=== PATIENT | female | born 1950 | race Caucasian/White ===

== ENCOUNTER 2016-12-12 04:37 | Emergency (ER) | payer OTHER ==
[~2016-12-12] VITALS: Ht 165.1 cm; Wt 75.0 kg
[~2016-12-12 04:37] MED LIST: CIPR500T4 PO; LORTA5 PO; METR-1 PO; NEUR300C PO; SIMV40 PO; VIMOVO PO
[2016-12-12 04:40] VITALS: BP 187/96; PULSE 98; RESP 16; TEMP 97.9; O2SAT 99
[2016-12-12] MEDS ORDERED: SODIUM CHLOR 0.9% 1000 ML INJ 1,000 ML IV SCH (05:11)
[2016-12-12] MEDS ORDERED: LIDOCAINE VISCOUS 2% SOLN 15 ML UDC PO ONE (05:15)
[2016-12-12] MEDS ORDERED: ALUMINUM/MAGNESIUM/SIMETH 30 ML CUP PO ONE (05:15)
[2016-12-12] MEDS ORDERED: diphenhydrAMINE HCL 50 MG/ML VIAL IVP ONE (05:15)
[2016-12-12] MEDS ORDERED: SODIUM CHLORIDE 0.9% FLUSH 5 ML FLUSH IVF PRN (05:15)
[2016-12-12] MEDS ORDERED: methylPREDNISolone SOD SUCC 125 MG/2 ML VIAL IM ONE (05:15)
[2016-12-12] MEDS ORDERED: FAMOTIDINE 20 MG/2 ML VIAL IV PUSH ONE (05:15)
--- NOTE | 2016-12-12 06:10 | PD ---
HPI Chief Complaint: Facial Pain or Swelling Time Seen by Provider: 05:10 Travel History International Travel<30 days: No Contact w/Intl Traveler<30days: No Traveled to known affect area: No History of Present Illness HPI 66-year-old female arrives with minimal swelling about the tongue and pain and swelling about the right face. It started while she was asleep waking her up. She also describes sore throat with swallowing. She's had no chest pain or dyspnea. She denies dentalgia. Onset gradual. Benadryl taken prior to ER arrival seems to have improved the tongue swelling somewhat. No fever. No similar prior episodes. She takes a statin daily. She denies any new or different medication or exposure to potential allergens of which she can identify. Onset gradual. Timing constant. PFSH Past Medical History Arthritis: Yes Cancer: Yes (BREAST CA) High Cholesterol: Yes Diverticulitis: Yes Tetanus Vaccination: > 5 Years Influenza Vaccination: No Menopausal: Yes Past Surgical History Cholecystectomy: Yes (IN 2008) Tonsillectomy: Yes ( A CHILD) Social History Alcohol Use: Yes (OCC.) Tobacco Use: No Substance Use: No Allergies-Medications (Allergen,Severity, Reaction): Coded Allergies: Sulfa (Verified Allergy, Severe, HIVES, 12/12/16) Reported Meds & Prescriptions Reported Meds & Active Scripts Active Clindamycin (Clindamycin HCl) 150 Mg Cap 450 Mg PO Q8HR 10 Days Benadryl Allergy (Diphenhydramine HCl) 25 Mg Tab 25 Mg PO Q6H PRN Prednisone 20 Mg Tab 20 Mg PO BID 4 Days [place] 5-325 mg (Hydrocodone-Acetaminophen 5-325 mg) 325 Mg/5 Mg Tab 1 Tab PO Q4HPRN Reported Flagyl (Metronidazole) 500 Mg Tab 500 Mg PO TID Cipro (Ciprofloxacin HCl) 500 Mg Tab 500 Mg PO BID Neurontin (Gabapentin) 300 Mg Cap 300 Mg PO TID [Vimovo] 1 Tab PO BID Zocor 40 Mg Tab40 Mg 40 Mg Tab 40 Mg PO HS Review of Systems Except as stated in HPI: all other systems reviewed are Neg Physical Exam Narrative GENERAL: 66-year-old female well-nourished well-developed SKIN: Warm and dry. No rash. HEAD: Atraumatic. Normocephalic. EYES: Pupils equal and round. No scleral icterus. No injection or drainage. ENT: No nasal bleeding or discharge. Mucous membranes pink and moist. Perhaps trace edema about the periphery of the tongue. Posterior oropharynx is widely patent. Buccal mucosa appears pink and intact with clear visualization of Stensen's duct on both sides. Excellent dentition with no evidence of carry/ apical abscess/tenderness. Along the body of the mandible on the right side there is a 1-2 cm focus of non-mobile tenderness swelling without overlying skin change or change involving the gingival mucosa. NECK: Trachea midline. No JVD. CARDIOVASCULAR: Regular rate and rhythm. No murmur appreciated. RESPIRATORY: No accessory muscle use. Clear to auscultation. Breath sounds equal bilaterally. GASTROINTESTINAL: Abdomen soft, non-tender, nondistended. Hepatic and splenic margins not palpable. MUSCULOSKELETAL: No obvious deformities. No clubbing. No cyanosis. No edema. NEUROLOGICAL: Awake and alert. No obvious cranial nerve deficits. Motor grossly within normal limits. Normal speech. PSYCHIATRIC: Appropriate mood and affect; insight and judgment normal. Data Data Last Documented VS Vital Signs Date Time Temp Pulse Resp B/P Pulse Ox O2 Delivery O2 Flow Rate FiO2 12/12/16 06:52 87 18 12/12/16 06:51 156/85 12/12/16 04:40 97.9 99 Orders Basic Metabolic Panel (Bmp) (12/12/16 05:11) Complete Blood Count With Diff (12/12/16 05:11) Ecg Monitoring (12/12/16 05:11) Iv Access Insert/Monitor (12/12/16 05:11) Oximetry (12/12/16 05:11) Diphenhydramine Inj (Benadryl Inj) (12/12/16 05:15) Methylprednisolone So Succ Inj (Solumedr (12/12/16 05:15) Famotidine Inj (Pepcid Inj) (12/12/16 05:15) Sodium Chlor 0.9% 1000 Ml Inj (Ns 1000 M (12/12/16 05:11) Sodium Chloride 0.9% Flush (Ns Flush) (12/12/16 05:15) Al-Mag Hy-Si 40-40-4 Mg/Ml Liq (Mag-Al P (12/12/16 05:15) Lidocaine 2% Viscous (Xylocaine 2% Visco (1/25/17 05:15) Labs Laboratory Tests Test 12/12/16 05:45 White Blood Count 9.7 TH/MM3 Red Blood Count 4.58 MIL/MM3 Hemoglobin 13.6 GM/DL Hematocrit 39.3 % Mean Corpuscular Volume 85.9 FL Mean Corpuscular Hemoglobin 29.7 PG Mean Corpuscular Hemoglobin 34.6 % Concent Red Cell Distribution Width 13.7 % Platelet Count 262 TH/MM3 Mean Platelet Volume 8.2 FL Neutrophils (%) (Auto) 77.8 % Lymphocytes (%) (Auto) 12.3 % Monocytes (%) (Auto) 8.0 % Eosinophils (%) (Auto) 1.6 % Basophils (%) (Auto) 0.3 % Neutrophils # (Auto) 7.6 TH/MM3 Lymphocytes # (Auto) 1.2 TH/MM3 Monocytes # (Auto) 0.8 TH/MM3 Eosinophils # (Auto) 0.2 TH/MM3 Basophils # (Auto) 0.0 TH/MM3 CBC Comment DIFF FINAL Differential Comment Sodium Level 141 MEQ/L Potassium Level 3.9 MEQ/L Chloride Level 102 MEQ/L Carbon Dioxide Level 29.1 MEQ/L Anion Gap 10 MEQ/L Blood Urea Nitrogen 19 MG/DL Creatinine 1.09 MG/DL Estimat Glomerular Filtration 50 ML/MIN Rate Random Glucose 158 MG/DL Calcium Level 9.2 MG/DL [facility] Medical Decision Making Medical Screen Exam Complete: Yes Emergency Medical Condition: Yes Medical Record Reviewed: Yes Differential Diagnosis Angioedema, abscess, cellulitis, bronchitis, anaphylaxis Narrative Course Benadryl, Pepcid, Solu-Medrol and IV fluids given. Maalox and lidocaine GI cocktail given. Patient reassessed at about 6:05 AM and reports feeling a marginal improvement regarding the tongue. The right face appears about the same. We'll provide the patient with a clindamycin prescription and prednisone as well as Benadryl. Return precautions discussed in some detail. Etiology is indeterminant however infectious process considered most probable diagnosis. Patient ready for discharge. Diagnosis Primary Impression: Mild tongue swelling Additional Impressions: Facial pain Sore throat Referrals: DR WHITE 1 day Additional Instructions: You have a choice when it comes to health care, and we are glad that you chose [facility]. Hopefully, we have met your expectations on today's visit. You are welcome to return to [facility] at any time, as we are committed to meeting the health care needs of our community. Med/Other Pt SpecificInfo: Prescription(s) given Scripts Clindamycin 150 Mg Hvs024 Mg PO Q8HR 10 Days Ref 0 Prov:Case Gutierrez MD 12/12/16 Diphenhydramine (Benadryl Allergy)25 Mg Tab25 Mg PO Q6H PRN (ALLERGIES) #20 TAB Ref 0 Prov:Case Gutierrez MD 12/12/16 Prednisone 20 Mg Tab20 Mg PO BID 4 Days Ref 0 Prov:Case Gutierrez MD 12/12/16 Disposition: 01 DISCHARGE HOME Condition: Stable Case Gutierrez MD Dec 12, 2016 06:10
[2016-12-12] MEDS ORDERED: PRED20 PO (06:19)
[2016-12-12] MEDS ORDERED: BENA25TA3 PO (06:19)
[2016-12-12 06:20] LABS: AUTOMATED NEUTROPHIL # 7.6 TH/MM3 (1.8-7.7); BASOPHIL % 0.3 % (0.0-2.0); EOSINOPHIL # 0.2 TH/MM3 (0-0.4); EOSINOPHIL % 1.6 % (0.0-4.0); HEMATOCRIT 39.3 % (35.0-46.0); HEMO FLAGS DIFF FINAL; LYMPH % 12.3 % (9.0-44.0); LYMPHOCYTE # 1.2 TH/MM3 (1.0-4.8); MEAN CELL VOLUME 85.9 FL (80.0-100.0); MEAN CORPUSCULAR HEMOGLOBIN 29.7 PG (27.0-34.0); MEAN CORPUSCULAR HGB CONC 34.6 % (32.0-36.0); NEUT % 77.8 % (16.0-70.0); PLATELET COUNT 262 TH/MM3 (150-450); RED BLOOD COUNT 4.58 MIL/MM3 (4.00-5.30); RED CELL DISTRIBUTION WIDTH 13.7 % (11.6-17.2); WHITE BLOOD COUNT 9.7 TH/MM3 (4.0-11.0)
[2016-12-12 06:40] LABS: BICARBONATE 29.1 MEQ/L (21.0-32.0); POTASSIUM 3.9 MEQ/L (3.5-5.1)
[2016-12-12 06:51] VITALS: BP 156/85
[2016-12-12] MEDS ORDERED: CLIN1CAP5 PO (07:14)
[2016-12-12 08:16] VITALS: BP 148/84
== END 2016-12-12 08:16 | disposition home or self-care (01) ==
LOC: NEPC 04:37
DX: E78.00 Pure hypercholesterolemia, unspecified (principal); R51 Headache; J02.9 Acute pharyngitis, unspecified
CPT/HCPCS: 80048; 85025; 96372; 96374; 96375; 99283; J1200; J2930; J7030